=== PATIENT | female | born 1935 | race Caucasian/White ===

== ENCOUNTER 2020-11-11 11:08 | Emergency (ER) | payer MEDICARE, OTHER ==
[~2020-11-11 11:08] MED LIST: AMIODARONE HCL200 MG PO; ASCORBIC ACID500 MG PO; ASPIRIN CHEWABL81 MG PO; CARAFATE1 GM PO; CERTAGEN1 EACH PO; DOCUSATE SODIU250 MG PO; ELIQUIS2.5 MG PO; FOLIC ACID0.8 M1 PO; LIVALO2 MG PO; LOPRESSOR50 MG PO; MILK OF MA400 MG/5 M PO; NEURONTIN100 MG PO; REQUIP1 MG PO; VERAPAMIL SR120 MG PO; VITAMIN B-121000 MC1 SL; VITAMIN D32000 UNI2 PO; VITAMIN E400 UNI1 PO; XANAX0.25 MG PO; ZESTRIL5 MG PO
== END 2020-11-11 16:49 | disposition home or self-care (01) ==
LOC: FER 11:08
DX: S71.112A Laceration without foreign body, left thigh, initial encounter (principal); S06.9X9A Unspecified intracranial injury with loss of consciousness of unspecified duration, initial encounter; I25.2 Old myocardial infarction; I48.91 Unspecified atrial fibrillation; I10 Essential (primary) hypertension; Z79.01 Long term (current) use of anticoagulants; W19.XXXA Unspecified fall, initial encounter; Y92.009 Unspecified place in unspecified non-institutional (private) residence as the place of occurrence of the external cause
CPT/HCPCS: 70450; 73552; 73700; J2270; J2405